=== PATIENT | male | born 1990 | race Caucasian/White ===

== ENCOUNTER 2023-09-07 01:30 | Emergency (ER) | payer SELFPAY ==
[2023-09-07 01:42] VITALS: BP 146/97; PULSE 88; RESP 18; TEMP 36.5; O2SAT 96; BMI 26.6
--- NOTE | 2023-09-07 01:45 | PC.NURSE ---
Pt states that he used to chew tabacco for a long time. However for the last 8 years he has had dental problems and not been able to get to dentist. He has been taking OTC Tylenol and Ibuprofen. Also was given some Keflex from his sister and has been taking 1 capsule four times a day for the last week.
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
[2023-09-07] MEDS: GABAPENTIN 300 MG CAPSULE PO (02:14)
[2023-09-07] MEDS: KETOROLAC 30 MG/ML VIAL IM (02:14)
[2023-09-07] MEDS: PENICILLIN 250 MG TAB PREPACK 1 BOTTLE MISC (02:15)
== END 2023-09-07 02:24 | disposition home or self-care (01) ==
PROVIDERS: Emergency Provider Emergency Medicine
DX: K08.89 Other specified disorders of teeth and supporting structures (principal)
CPT/HCPCS: 64450; 96372; 99283; J1885

== ENCOUNTER 2023-09-16 17:05 | Emergency (ER) | payer SELFPAY ==
[2023-09-16 17:21] VITALS: BP 120/80; PULSE 52; RESP 18; TEMP 36.5; O2SAT 98; BMI 26.6
--- NOTE | 2023-09-16 19:45 | PC.NURSE ---
Called 1943, no answer
== END 2023-09-16 19:40 | disposition left against medical advice (07) ==
PROVIDERS: Emergency Provider Emergency Medicine
DX: Z76.0 Encounter for issue of repeat prescription (principal)
CPT/HCPCS: 99281